=== PATIENT | male | born 1965 | race Caucasian/White ===

== ENCOUNTER 2024-10-12 05:40 | Emergency (ER) | payer OTHER, SELFPAY ==
[2024-10-12 05:43] VITALS: BP 148/84
--- NOTE | 2024-10-12 08:24 | ED.GENMED ---
History of Present Illness
<Man Saez PA-C - Last Filed: 10/12/24 14:42>
General
Chief Complaint: Fall
Time Seen by Provider: 10/12/24 07:07
History of Present Illness
History of Present Illness:
58-year-old male presents the emergency department for evaluation of lacerations to the left periorbital face as well as the left watson after a fall. No LOC. Does not take blood thinners. Last tetanus is under 5 years.
Past History
<Man Saez PA-C - Last Filed: 10/12/24 14:42>
Past History
ED Past Medical History: None
ED Past Surgical History: None
Social History
Tobacco: Non-smoker
Review of Systems
<KARI Burgess Last Filed: 10/12/24 14:42>
Review of Systems
Allergies reviewed?: Yes
All Other Systems: ROS reviewed and negative except as documented in HPI and ROS
Phy Exam
<Man Saez PA-C - Last Filed: 10/12/24 14:42>
Physical Exam
Physical Exam:
GEN: Well appearing, NAD, WDWN
HEENT: Oral mucosa moist, no scleral icterus. 5 cm stellate laceration to the left maxillary face extending to the left periorbital/upper eyelid, does not violate the orbicularis oculi musculature. There is additional 2.5 cm laceration to the
inferior aspect of the chin. Extraocular motions are intact globally with no limitation or diplopia
Cardiac: Regular rate
Lung: No respiratory distress, no tachypnea
MSK: No gross deformity or injuries
Skin: Good color, no pallor or jaundice, no rashes
Neuro: AO x3, moves all extremities freely
Psych: Calm, cooperative
Course
<Man Saez PA-C - Last Filed: 10/12/24 14:42>
Vital Signs
Initial and Last Documented VS:
Initial Vital Signs
Temp Pulse Resp BP Pulse Ox
97.6 F 92 18 148/84 98
10/12/24 05:43 10/12/24 05:43 10/12/24 05:43 10/12/24 05:43 10/12/24 05:43
Last Documented Vital Signs
Temp Pulse Resp BP Pulse Ox
97.6 F 78 16 126/74 98
10/12/24 05:43 10/12/24 08:30 10/12/24 08:30 10/12/24 08:30 10/12/24 08:30
<Veronique Urrutia MD - Last Filed: 10/12/24 08:31>
Vital Signs
Initial and Last Documented VS:
Initial Vital Signs
Temp Pulse Resp BP Pulse Ox
97.6 F 92 18 148/84 98
10/12/24 05:43 10/12/24 05:43 10/12/24 05:43 10/12/24 05:43 10/12/24 05:43
Last Documented Vital Signs
Temp Pulse Resp BP Pulse Ox
97.6 F 78 16 126/74 98
10/12/24 05:43 10/12/24 08:30 10/12/24 08:30 10/12/24 08:30 10/12/24 08:30
Procedures
<Man Saez PA-C - Last Filed: 10/12/24 14:42>
Laceration Closure
Left facial:
Status of Wound: dirty and imbedded foreign material
Size of Wound in cm: 4.5
Description of Wound Edges: ragged
Preparation: cleaned with saline
Anesthesia: 1% Lidocaine with epi
Revision/Debridement: irrigate-direct pressure
Wound exploration: extensive cleaning of contaminated wound and foreign body removed (Numerous wooden foreign bodies manually removed and irrigated)
Type of Closure: layered closure
Skin Closure Material: 6-0 prolene and other (6-0 gut)
Number of sutures: 15
Chin:
Status of Wound: clean
Size of Wound in cm: 2.5
Description of Wound Edges: sharp
Preparation: cleaned with saline
Anesthesia: 1% Lidocaine with epi
Revision/Debridement: routine- no revision
Wound exploration: explored to base- no FB
Type of Closure: single layer closure
Skin Closure Material: 6-0 prolene
Number of sutures: 7
<Man Saez PA-C - Last Filed: 10/12/24 14:42>
MDM/Problems Addressed
MDM/Problems Addressed:
Extensively delicate closure particularly of the left periorbital wound, no evidence for extraocular muscle injury or ocular injury. Discussed supportive care. No indication for CT of the head
<Man Saez PA-C - Last Filed: 10/12/24 14:42>
*Critical Care Note
Total Time (30-74mins, 75-104mins- exclusive of procedures): Not Applicable
ED Attending Note
<Man Saez PA-C - Last Filed: 10/12/24 14:42>
-
Portions of this chart may have been created with voice recognition software.� Occasional wrong word or��sound alike� substitutions may have occurred due to the inherent limitations of voice recognition software.
<Veronique Urrutia MD - Last Filed: 10/12/24 08:31>
ED Attending Note
Patient seen and examined by attending physician: Yes
I performed the substantive portion of visit, reviewed & personally made and approve the management plan that is documented in note by myself or ROSALIA.: Yes
ED Attending Note:
Patient status post fall suffering laceration left lateral face and chin area. I examined wounds, confirmed EOMI, no involvement of extraocular muscles etc.
Discharge Plan
Departure
Patient Disposition: Home (Routine Discharge)
Date of Disposition: 10/12/24
Time of Disposition: :
Patient with high blood pressure during this ER visit?: Yes
Discharge Problem:
Complex laceration of face, Chin laceration
Instructions: Laceration Repair With Stitches (DC)
Prescriptions:
No Action
cephalexin 500 MG capsule
500 mg PO QID Qty: 20 0RF
Referrals:
UNKNOWN - PT DOES,NOT KNOW [Family Provider] -
Activity Restrictions/Additional Instructions:
Keep wounds dry for the remainder of today
Beginning tomorrow morning remove the bandages and rinse gently with soap and water. Avoid scrubbing vigorously to minimize chance of the disrupted wound.
Keep wound covered every day with nonstick bandages
Follow-up with the emergency department in 7 days for suture removal
You have a total of 22 sutures, 7 of which are external in the chin and 11 of which are external to the left eye
Interventions
Interventions:
*Risk Screen - Suicide Last Done: 10/12/24 05:43
*General Assessment Last Done: 10/12/24 08:30
*Neglect/Abuse Screening Last Done: 10/12/24 06:03
*ED- Fall Risk Assessment Last Done: 10/12/24 06:02
*ED COVID-19 Vaccine History Last Done: 10/12/24 06:03
*Nursing Disposition Last Done: 10/12/24 08:30
ED-Musculoskeletal Assessment Last Done: 10/12/24 06:02
ED- Neurological Assessment Last Done: 10/12/24 06:02
ED-Skin Assessment Last Done: 10/12/24 06:02
Discharge Date and Time
Discharge Date/Time: 10/12/24 08:31
Print Language: NAMIBIAN
[2024-10-12 08:30] VITALS: BP 126/74
== END 2024-10-12 08:31 | disposition home or self-care (01) ==
LOC: EMR 05:40
PROVIDERS: EMERGENCY PHYSICIAN Emergency Medicine
DX: S01.112A Laceration without foreign body of left eyelid and periocular area, initial encounter (principal); S01.81XA Laceration without foreign body of other part of head, initial encounter; W19.XXXA Unspecified fall, initial encounter
CPT/HCPCS: 12053; 99282

== ENCOUNTER 2024-10-19 08:13 | Emergency (ER) | payer OTHER, SELFPAY ==
[2024-10-19 08:15] VITALS: BP 138/75
--- NOTE | 2024-10-19 08:42 | ED.SKININJ ---
HPI-Injury
General
Chief Complaint: Wound Check/Suture Removal
Source: patient
Exam Limitations: none
Time Seen by Provider: 10/19/24 08:25
Nursing documentation reviewed up to this point in time: agreed with
History of Present Illness-Injury
Initial Injury comments:
58-year-old here for suture removal. Sutures were placed on 10/12, no complications reported
Past History
Past History
ED Past Medical History: None
Social History
Tobacco: Non-smoker
Personal:
Living: with family
Review of Systems
Review of Systems
Allergies reviewed?: Yes
All Other Systems: ROS reviewed and negative except as documented in HPI and ROS
Skin: Reports other (Here for suture removal, wounds healing well)
Phy Exam
Physical Exam
Physical Exam:
PHYSICAL EXAMINATION:
General: no apparent distress, not acutely ill
Neuro: alert and oriented.
Psychiatric: well kept. interactive and cooperative
Musculoskeletal: Moves with ease
Skin: Warm, pink. All sutures removed, wounds are healing well
Course
Vital Signs
Initial and Last Documented VS:
Initial Vital Signs
Temp Pulse Resp BP Pulse Ox
97.8 F 82 16 138/75 98
10/19/24 08:15 10/19/24 08:15 10/19/24 08:15 10/19/24 08:15 10/19/24 08:15
Last Documented Vital Signs
Temp Pulse Resp BP Pulse Ox
97.8 F 82 16 138/75 98
10/19/24 08:15 10/19/24 08:15 10/19/24 08:15 10/19/24 08:15 10/19/24 08:15
MDM/Problems Addressed
MDM/Problems Addressed:
58-year-old here for suture removal. Sutures were placed on 10/12, no complications reported
13 sutures removed from left side orbit and eyelid, 7 sutures removed from chin.
Antibiotic ointment applied.
*Critical Care Note
Total Time (30-74mins, 75-104mins- exclusive of procedures): Not Applicable
ED Attending Note
-
Portions of this chart may have been created with voice recognition software.� Occasional wrong word or��sound alike� substitutions may have occurred due to the inherent limitations of voice recognition software.
Discharge Plan
Departure
Patient Disposition: Home (Routine Discharge)
Date of Disposition: 10/19/24
Time of Disposition: 08:41
Patient with high blood pressure during this ER visit?: No
Condition: Good
Discharge Problem:
Visit for suture removal
Instructions: Stitches Removal
Prescriptions:
No Action
cephalexin 500 MG capsule
500 mg PO QID Qty: 20 0RF
Interventions
Interventions:
*Risk Screen - Suicide Last Done: 10/19/24 08:15
*General Assessment Last Done: 10/19/24 08:50
*Neglect/Abuse Screening Last Done: 10/19/24 08:15
*ED- Fall Risk Assessment Last Done: 10/19/24 08:50
*ED COVID-19 Vaccine History Last Done: 10/19/24 08:50
*Nursing Disposition Last Done: 10/19/24 08:53
ED-Skin Assessment Last Done: 10/19/24 08:51
Discharge Date and Time
Discharge Date/Time: 10/19/24 08:54
Print Language: SAO TOMEAN
== END 2024-10-19 08:54 | disposition home or self-care (01) ==
LOC: EMR 08:13
PROVIDERS: EMERGENCY PHYSICIAN Emergency Medicine; FAMILY PHYSICIAN Family Medicine
DX: Z48.02 Encounter for removal of sutures (principal)
CPT/HCPCS: 99282